=== PATIENT | female | born 1970 | race Caucasian/White ===

== ENCOUNTER → 2016-08-30 | Outpatient (CLI) | payer OTHER ==
[~2016-08-30] MED LIST: LIDOCAINE 1% INJ 20 ML (XYLOCAINE) VIAL ONE
--- NOTE | 2016-08-30 10:26 | Diagnostic Imaging Report ---
PROCEDURE: US Thyroid. TECHNIQUE: Multiple real-time grayscale images were obtained of the thyroid in various projections. INDICATION: Thyroid nodules. FINDINGS: The left thyroid lobe is 5.4 x 1.9 x 1.8 cm. The right lobe is 5.5 x 1.8 x 2 cm in size. In the upper pole of the left thyroid lobe, there is a hypoechoic nodule measuring 6 x 6 x 6 mm and contains microcalcifications. It has irregular margins. No internal vascularity is demonstrated with color Doppler. In the inferior aspect of the right thyroid lobe, there is a 6 x 4 x 5 mm hypoechoic nodule. One focus of hyperechogenicity could represent calcification. This lesion is smoothly marginated. IMPRESSION: Subcentimeter bilateral thyroid nodules are seen bilaterally. The nodule on the left side appears to have more microcalcifications and irregular margins. Dictated by: Dictated on workstation # [id number]
--- NOTE | 2016-08-30 14:17 | Diagnostic Imaging Report ---
EXAMINATION: US-guided fine needle biopsy-thyroid. INDICATION: Thyroid nodule. CONSENT: Informed consent was obtained from the patient. The risks, benefits, potential complications and alternatives were reviewed and all questions answered to the patient's satisfaction. FINDINGS: Irregular left thyroid nodule with microcalcifications. PROCEDURE: After sterile preparation and draping, 1% lidocaine was utilized for local anesthesia. A 25-gauge hypodermic needle is introduced into the left thyroid nodule under live ultrasound guidance. After confirming adequate positioning with saved ultrasound images, multiple passes of fine needle aspiration is performed and repeated 5 times. The patient tolerated the procedure well with no immediate complications. IMPRESSION: Successful US-guided fine needle aspiration biopsy of irregular left thyroid nodule with microcalcifications. Dictated by: Dictated on workstation # [id number]
== END ==
LOC: RAD 08:41
PROVIDERS: ATTEND Surgery
DX: E04.1 Nontoxic single thyroid nodule (principal)
CPT/HCPCS: 76536; 76942; 88305

== ENCOUNTER 2016-09-07 08:58 | Outpatient (CLI) | payer OTHER ==
[~2016-09-07] VITALS: Ht 167.6 cm; Wt 73.5 kg
[~2016-09-07 08:58] MED LIST changes: -LIDOCAINE 1% INJ 20 ML (XYLOCAINE) VIAL ONE; +MIRT15TA PO
== END 2016-09-07 09:01 ==
LOC: PREOP 08:58
PROVIDERS: ATTEND Surgery
DX: Z01.818 Encounter for other preprocedural examination (principal); C73 Malignant neoplasm of thyroid gland; Z80.8 Family history of malignant neoplasm of other organs or systems

== ENCOUNTER 2016-09-09 09:09 | Day surgery (SDC) | payer OTHER ==
[~2016-09-09] VITALS: Ht 167.6 cm; Wt 73.5 kg
[2016-09-09] MEDS ORDERED: MIDAZOLAM 2 MG/2 ML (VERSED) VIAL IV ONE (09:30)
[2016-09-09 09:35] VITALS: BP 117/71
[2016-09-09] MEDS ORDERED: ceFAZolin 1 GM/NS 50 ML IVPB IV ONE ×2 (09:45)
[2016-09-09 09:58] LABS: MEAN PLATELET VOLUME 10.4 FL (7.4-10.4); RED BLOOD COUNT 4.99 10^6/uL (4.35-5.85); RED CELL DISTRIBUTION WIDTH 12.8 % (10.0-14.5); WHITE BLOOD COUNT 7.5 10^3/uL (4.3-11.0)
--- NOTE | 2016-09-09 10:02 | Progress Note-Pre Operative ---
Pre-Operative Progress Note H&P Reviewed The H&P was reviewed, patient examined and no changes noted. 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
[2016-09-09] MEDS ORDERED: BUP/EPI 0.25% 1:200,000 (MARCAINE) 30 ML VIAL ONE (10:12)
[2016-09-09] MEDS ORDERED: THROMBIN SPRAY KIT 5,000 UNIT VIAL ONE (10:13)
[2016-09-09 10:19] LABS: ANION GAP 12 MMOL/L (5-14); BLOOD UREA NITROGEN 10 MG/DL (7-18); BUN/CREATININE RATIO 11; CALCIUM 9.3 MG/DL (8.5-10.1); CARBON DIOXIDE 21 MMOL/L (21-32); CHLORIDE 109 MMOL/L (98-107); GFR ESTIMATED > 60; GLUCOSE 105 MG/DL (70-105); POTASSIUM 3.5 MMOL/L (3.6-5.0); SODIUM 142 MMOL/L (135-145)
[2016-09-09] MEDS ORDERED: LIDOCAINE PF 2% 10 ML (XYLOCAINE) AMP ONE (10:19)
[2016-09-09] MEDS ORDERED: proPOfol 200 MG/20 ML (DIPRIVAN) VIAL IV ONE (10:19)
[2016-09-09] MEDS ORDERED: LACTATED RINGERS 1,000 ML IV ONE ×2 (10:19→11:24)
[2016-09-09] MEDS ORDERED: ONDANSETRON 4 MG/2 ML (SDV) Z0FRAN ONE (10:19)
[2016-09-09] MEDS ORDERED: ROCURONIUM 50 MG/5 ML (ZEMURON) VIAL IV ONE (10:19)
[2016-09-09] MEDS ORDERED: MIDAZOLAM 2 MG/2 ML (VERSED) VIAL ONE (10:20)
[2016-09-09] MEDS ORDERED: fentaNYL INJECTION 100 MCG/2 ML AMP ONE ×2 (10:20→11:04)
[2016-09-09] MEDS: LACTATED RINGERS 1,000 ML IV PRN ×2 (10:28→11:31)
[2016-09-09] MEDS ORDERED: PHENYLEPHRINE 100 MCG/ML 10 ML (ANESTHESIA) SYR ONE (11:45)
[2016-09-09] MEDS ORDERED: morphine INJ 10 MG/ML 1ML (SYR OR VIAL) ONE (12:57)
--- NOTE | 2016-09-09 13:01 | Progress Note-Post Operative ---
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 Intraoperative nerve monitoring. Bilateral selective lymph node dissection Anesthesia Type Gen. Estimated Blood Loss Estimated blood loss (mL): 25 mL Specimens/Packing Specimens Removed Both lobes of thyroid. Bilateral paratracheal lymph nodes HOWARD GARCIA MD September 09, 2016 1:01 pm
[2016-09-09] MEDS ORDERED: HYDR-3812 PO (13:05)
[2016-09-09] MEDS ORDERED: LEVO100T7 PO (13:06)
--- NOTE | 2016-09-09 13:07 | Discharge Inst-Simple/Standard ---
Discharge Inst-Standard Discharge Medications New, Converted or Re-Newed RX: RX on Chart Patient Instructions/Follow Up Plan of Care/Instructions/FU: Dressings off in a.m. Follow-up in 3 weeks. Activity as Tolerated: Yes Discharge Diet: No Restrictions HOWARD GARCIA MD September 09, 2016 1:07 pm
[2016-09-09] MEDS ORDERED: SEVOFLURANE (ULTANE) 15 ML INHAL SOLN ONE (13:13)
[2016-09-09] MEDS ORDERED: ONDANSETRON 4 MG/2 ML (SDV) Z0FRAN IVP PRN ×2 (13:15)
[2016-09-09] MEDS ORDERED: MEPERIDINE (DEMEROL) INJ 50 MG/ML IVP PRN (13:15)
[2016-09-09] MEDS: morphine INJ 10 MG/ML 1ML (SYR OR VIAL) IVP PRN ×2 (13:25→13:40)
[2016-09-09] MEDS: fentaNYL INJECTION 100 MCG/2 ML AMP IVP PRN ×2 (14:31→19:20)
[2016-09-09] MEDS ORDERED: HYDROcodone/APAP 5 MG/325 MG (LORTAB) TAB ONE (15:50)
[2016-09-09] MEDS: LACTATED RINGERS 1,000 ML IV SCH ×2 (15:57→23:02)
[2016-09-09 16:12] VITALS: BP 132/83
[2016-09-09] MEDS: CALCIUM CARBONATE 600 MG (CALCARB) TAB PO SCH (17:17)
[2016-09-09] MEDS: HYDROcodone/APAP 5 MG/325 MG (LORTAB) TAB PO PRN ×2 (17:17→23:29)
[2016-09-09 19:10] VITALS: BP 132/81
--- NOTE | 2016-09-09 20:11 | OPERATIVE REPORT ---
DATE OF SERVICE: 09/09/2016 PREOPERATIVE DIAGNOSIS: Bilateral thyroid nodules with papillary carcinoma on cytology. POSTOPERATIVE DIAGNOSIS: Papillary carcinoma of thyroid. OPERATIONS: 1. Total thyroidectomy. 2. Intraoperative nerve monitoring. 3. Bilateral selective lymph node dissection (paratracheal). SURGEON: Howard Garcia MD ANESTHESIA: General anesthesia. BLOOD LOSS: 25 mL. FLUIDS: 1500 mL of crystalloid. TYPE OF WOUND: Type 1 (clean wound). INDICATIONS FOR PROCEDURE: This lady has a family history of papillary carcinoma and was found to have a calcified, irregular nodule over the left upper lobe of the thyroid. Ultrasound examination of thyroid revealed smaller nodules on the contralateral lobe as well. Fine needle aspiration was very suspicious for papillary carcinoma. Therefore, it was felt reasonable to proceed with thyroidectomy, perform frozen section and selective lymph node dissection should papillary carcinoma be confirmed on frozen section. Informed consent was obtained after reviewing the operative details and complications of hematoma, hoarseness of voice and hypocalcemia. DESCRIPTION OF PROCEDURE: She was placed supine on the operating table, and general anesthesia induced using an endotracheal tube. A gram of Ancef was administered intravenously as prophylaxis against wound infection. Sequential compression devices were placed around her legs to minimize the risk of venous thrombosis. A Wick catheter was placed to decompress the bladder during surgery. It was removed at the end of the operation. The neck and upper chest were prepared and draped in the usual sterile manner. Pre-emptive analgesia was established using 0.25% Marcaine with epinephrine. A 4.5 cm incision was made over the skin crease of the neck in a traverse fashion, and platysma incised transversely. Cervical fascia was incised vertically, and the strap muscles were retracted laterally. I began the dissection on the left lobe. The lobe was retracted medially, and the strap muscles were retracted laterally. At this junction, the middle thyroid vein came into view and was controlled using the Harmonic scalpel. This was followed division of the superior thyroid artery between 0 silk sutures and reinforced with the LigaSure. Multiple branches of the inferior thyroid artery were controlled using Ligaclips to identify and protect the recurrent laryngeal nerve. Intermittent nerve stimulation technique was also performed to add to the safety of nerve protection. I was able to identify 1 parathyroid gland possibly superior in nature and preserved, along with its blood supply. The isthmus was then divided using the Harmonic scalpel, and the left lobe sent for frozen section analysis. The pathologist, , confirmed papillary carcinoma involving the nodule at the upper fold of the thyroid. Therefore, we proceeded with thyroidectomy and lymph node dissection. On the right lobe, a similar dissection was performed. The recurrent laryngeal nerve was found in its conventional position and protected by constant visual inspection and intermittent nerve stimulation technique. Both parathyroid glands were preserved, along with their blood supply. The superior thyroid artery was then controlled between 0 silk sutures and reinforced with a Ligaclip. Once thyroidectomy was completed, we proceeded with selective lymph node dissection of the paratracheal lymph nodes. The chain of small lymph nodes along each side of the trachea extending from the thyroid gland up to the suprasternal region was carefully, protecting the recurrent laryngeal nerve. The lymph node chain from each side was sent separately for histological examination. Hemostasis appeared to be satisfactory. We had anesthesiologist conduct Valsalva maneuver, looking for any venous bleeding. There was not any. Gelfoam soaked in thrombin solution was placed along the tracheal esophageal grooves to optimize hemostasis. The neck was then flexed in preparation for closure. The cTopofForm ervical fascia was approximated with 3-0 Vicryl and platysma using the same material. The skin was closed using 4-0 Vicryl in a subcuticular fashion. She tolerated the procedure well, was extubated in the operating room and taken to the recovery room in a stable condition. [place], sponges and instruments were correct at the end of the operation. Job ID: [id number] DocumentID: [id number] Dictated Date: 09/09/2016 12:55:57 New Business Clerk Date: 09/09/2016 20:10:26 Dictated By: HOWARD GARCIA MD [facility]ITAL[facility]
[2016-09-09] MEDS ORDERED: MIRTAZAPINE 15 MG (REMERON) TAB PO SCH (21:00)
[2016-09-09] MEDS ORDERED: NON-FORMULARY MEDICATION 1 EA EA (Mirtazapine (Remeron) 15 MG) PO SCH (21:00)
[2016-09-10] VITALS: BP 127/76
[2016-09-10 04:00] VITALS: BP 118/74
[2016-09-10 05:58] LABS: ANION GAP 10 MMOL/L (5-14); BLOOD UREA NITROGEN 10 MG/DL (7-18); BUN/CREATININE RATIO 12; CALCIUM 7.9 MG/DL (8.5-10.1); CARBON DIOXIDE 24 MMOL/L (21-32); CHLORIDE 108 MMOL/L (98-107); CREATININE SERUM 0.82 MG/DL (0.60-1.30); GFR ESTIMATED > 60; GLUCOSE 105 MG/DL (70-105); POTASSIUM 3.5 MMOL/L (3.6-5.0); SODIUM 142 MMOL/L (135-145)
[2016-09-10] MEDS: CALCIUM CARBONATE 600 MG (CALCARB) TAB PO SCH (05:59)
[2016-09-10] MEDS: HYDROcodone/APAP 5 MG/325 MG (LORTAB) TAB PO PRN ×2 (06:00→09:50)
[2016-09-10] MEDS ORDERED: LEVOTHYROXINE 100 MCG (LEVOTHROID) TAB PO NR (06:00)
[2016-09-10 08:00] VITALS: BP 113/69
[2016-09-10 11:00] VITALS: BP 110/68
== END 2016-09-10 11:00 | disposition home or self-care (01) ==
LOC: SDC 09:09 → 4TH 15:22 → ENPENDDIS 09-10 10:00 → SDC 09-10 11:00
PROVIDERS: ATTEND Surgery
DX: C73 Malignant neoplasm of thyroid gland (principal)
CPT/HCPCS: 36415; 80048; 84703; 85027; 87081

== ENCOUNTER → 2016-09-19 | Outpatient (CLI) | payer OTHER ==
[~2016-09-19] MED LIST changes: +HYDR-3812 PO; +LEVO100T7 PO
== END ==
LOC: LAB 08:33
PROVIDERS: ATTEND Surgery
DX: E83.51 Hypocalcemia (principal); E89.0 Postprocedural hypothyroidism
CPT/HCPCS: 36415; 82310

== ENCOUNTER → 2016-10-21 | Outpatient (CLI) | payer OTHER ==
[2016-10-21 13:32] LABS: THYROID STIMULATING HORMONE 1.65 UIU/ML (0.35-4.94)
== END ==
LOC: LAB 12:44
PROVIDERS: ATTEND Surgery
DX: C73 Malignant neoplasm of thyroid gland (principal)
CPT/HCPCS: 36415; 84432; 84439; 84443